=== PATIENT | male | born 1980 | race Caucasian/White ===

== ENCOUNTER 2017-09-20 22:57 | Emergency (ER) | payer OTHER ==
[2017-09-20 23:07] VITALS: BP 118/74
--- NOTE | 2017-09-20 23:27 | ERNOTE ---
Medical Problem HPI - General Chief Complaint: General Assessment Time Seen by Provider: 09/20/17 23:13 Source: patient, police Exam Limitations: no limitations - Immun/Allergies/Home Medications Immunizations: IMMUNIZATION HX Immunizations Up to Date Yes History of Influenza Vaccine Yes Hx Pneumococcal Vaccination No Allergies/Adverse Reactions: Allergies No Known Allergies Allergy (Verified 04/01/16 11:12) Home Medications: HOME MEDICATIONS NK [No Home Medication] 07/17/14 [Last Taken Unknown] - History of Present History Narrative: Pt was brought in by LE due to being tazed and acting irrational in their custody. Pt is acting a little strange here but reports that he has no pain or illness and that he feels "great". Timing: gone now Review of Systems - Review of Systems Constitutional: Absent: recent illness EYE: Absent: double vision ENT: Absent: nose congestion Respiratory: Absent: shortness of breath Cardiology: Absent: chest pain Gastrointestinal/Abdominal: Absent: nausea, vomiting Genitourinary: Present: no symptoms reported Musculoskeletal: Absent: back pain, muscle pain Skin: Present: no symptoms reported Neurological: Present: anxiety - but is relieved by smoking "you know". . Absent: headache Endocrine: Present: no symptoms reported Hematologic/Lymphatic: Present: no symptoms reported Psych: Present: anxiety - Patient's Past Medical History Patient History - Medical: No pertinent hx Patient History - Cardiac/Respiratory: No pertinent hx Patient History - Cancer: No Hx of Cancer Patient History - Surgical Procedures: No surgical history Patient History - Other: None - Family History Mother Family History - Medical: Seizures Father Family History - Medical: No pertinent hx - Social History Living Situations: parents Psych History: Hx of Anxiety, Hx of Depression Smoking Status: Current every day smoker Have you smoked in the past 12 months: Yes Do you dip or chew tobacco: No Alcohol Use: occasionally Drug Use: marijuana - Immunizations Immunizations Up to Date: Yes Hx Pneumococcal Vaccination: No History of Influenza Vaccine: Yes Physical Exam - Physical Exam General Appearance: Present: wd/wn, alert, no apparent distress Head Exam: Present: normal inspection, no evidence of injury Eye Exam: Normal inspection: bilateral, PERRL: bilateral - small but reactive, EOMI: bilateral, Sclera injection: bilateral - mild Ears, Nose, Throat: Present: normal pharynx, dry mucous membranes. Absent: tonsillar swelling Neck: Present: normal inspection, nontender, supple Respiratory: Present: no respiratory distress, normal breath sounds, lungs clear Cardiovascular/Chest: Present: regular rate, rhythm, no murmur, normal peripheral pulses Gastrointestinal/Abdominal: Present: normal bowel sounds, nontender, nondistended, soft Back Exam: Present: normal inspection, normal range of motion, no CVA tenderness , no vertebral tenderness Extremity Exam: Present: normal inspection, normal range of motion, no edema Neurological Exam: Present: alert, oriented, other - focused on smoking but will not come out and say what he has been smoking except that he smokes it instead of cigarettes Skin Exam: Present: normal color, warm/dry, other - two small puncture wounds from tazer barbs on his mid back, no inflamation or bleeding Lymphatic Exam: Present: no adenopathy ED Progress - Vital Signs Vital Signs: Vital Signs 09/20/17 22:59 Temperature 36.7 C Pulse Rate 119 H Respiratory 20 Rate Blood Pressure 118/74 O2 Sat by Pulse 98 Oximetry - Progress/Reassessment Chief Complaint: General Assessment Departure Clinical Impression: Puncture wound of back wall of thorax without foreign body without penetration into thoracic cavity Qualifiers: Encounter type: initial encounter Laterality: unspecified laterality Qualified Code(s): S21.239A - Puncture wound without foreign body of unspecified back wall of thorax without penetration into thoracic cavity, initial encounter - Departure Disposition: Long-Term Condition: Good Instructions: Puncture Wound, [id number] Additional Instructions: Wash wounds and apply triple antibiotic ointment to the wounds twice a day for 3 -5 days.
== END 2017-09-20 23:27 ==
LOC: ER 22:57
DX: S21.239A Puncture wound without foreign body of unspecified back wall of thorax without penetration into thoracic cavity, initial encounter (principal); Y35.891A Legal intervention involving other specified means, law enforcement official injured, initial encounter; Y93.9 Activity, unspecified; Y92.149 Unspecified place in prison as the place of occurrence of the external cause; Y99.9 Unspecified external cause status; F17.200 Nicotine dependence, unspecified, uncomplicated

== ENCOUNTER 2017-09-22 19:54 | Emergency (ER) | payer SELFPAY ==
--- NOTE | 2017-09-22 21:01 | ERNOTE ---
Medical Problem HPI - General Chief Complaint: General Assessment Time Seen by Provider: 09/22/17 20:25 Source: patient Exam Limitations: no limitations - Immun/Allergies/Home Medications Immunizations: IMMUNIZATION HX Immunizations Up to Date Yes History of Influenza Vaccine Yes Hx Pneumococcal Vaccination No Allergies/Adverse Reactions: Allergies No Known Allergies Allergy (Verified 04/01/16 11:12) Home Medications: HOME MEDICATIONS NK [No Home Medication] 07/17/14 [Last Taken Unknown] - History of Present History Narrative: Pt was arrested 2 days ago and was reportedly aggressive with police. He was tazed by police and was subsequently brought to the ED at that time. During that visit patient stated that he did not have any pain and thus no x-rays were taken at that time. He has become more sore and now desires evaluation for his injuries. He states he has right shoulder pain, left hip pain, neck and head pain Timing: constant Severity: moderate Modifying Factors - (Improves): Present: immobilization Modifying Factors - (Worsens): Present: movement Review of Systems - Review of Systems Constitutional: Present: fatigue, malaise EYE: Present: no symptoms reported ENT: Present: no symptoms reported Respiratory: Absent: cough Cardiology: Present: chest pain - general soreness Gastrointestinal/Abdominal: Present: nausea, vomiting Genitourinary: Absent: frequency, pain Musculoskeletal: Present: See HPI, back pain, muscle pain, neck pain Skin: Present: other - bruise on left hip and abrasion right shoulder Neurological: Present: headache. Absent: weakness, numbness Endocrine: Absent: excessive sweating Hematologic/Lymphatic: Present: no symptoms reported Psych: Present: emotional problems - Patient's Past Medical History Patient History - Medical: No pertinent hx Patient History - Cardiac/Respiratory: No pertinent hx Patient History - Cancer: No Hx of Cancer Patient History - Surgical Procedures: No surgical history Patient History - Other: None - Family History Mother Family History - Medical: Seizures Father Family History - Medical: No pertinent hx - Social History Living Situations: parents Psych History: Hx of Anxiety, Hx of Depression Smoking Status: Current every day smoker Have you smoked in the past 12 months: Yes Do you dip or chew tobacco: No Alcohol Use: heavy Drug Use: marijuana - Immunizations Immunizations Up to Date: Yes Hx Pneumococcal Vaccination: No History of Influenza Vaccine: Yes Physical Exam - Physical Exam General Appearance: Present: wd/wn, alert, no apparent distress Head Exam: Present: normal inspection, no evidence of injury Eye Exam: Normal inspection: bilateral, PERRL: bilateral, EOMI: bilateral, Other : bilateral - fundus normal Ears, Nose, Throat: Present: nasal congestion - pale mucosa, normal pharynx Neck: Present: full range of motion, tender posterior midline - C7-T1 Respiratory: Present: no respiratory distress, no accessory muscle use Back Exam: Present: vertebral tenderness - upper thoracic Extremity Exam: Present: normal range of motion. Absent: joint redness, joint swelling Neurological Exam: Present: alert, oriented, normal mood/affect, no motor/ sensory deficits Skin Exam: Present: other - bruising over left illium and abrasion over right shoulder ED Progress - Vital Signs Vital Signs: Vital Signs 09/22/17 20:03 Temperature 37.6 C H Pulse Rate 82 Respiratory 16 Rate Blood Pressure 149/77 O2 Sat by Pulse 99 Oximetry - X-Ray X-Ray #1 X-Ray: thoracic Interpretation: Reviewed by me X-ray Comments: IMPRESSION: No acute fracture or listhesis. The upper thoracic spine is poorly visualized even on the swimmer's view due to overlying structures. Electronically signed by Marisol Dorsey D.O.. X-Ray #2 X-Ray: c-spine Interpretation: Reviewed by me X-ray Comments: IMPRESSION: Straightening of the normal cervical lordosis which may be positional or related to muscle spasm. No acute fracture or listhesis. Electronically signed by Marisol Dorsye D.O.. X-Ray #3 X-Ray: hip - left Interpretation: Reviewed by me X-ray Comments: FINDINGS: There is no evidence of acute fracture or malalignment. The joint spaces are normal. The visualized soft tissues are normal. IMPRESSION: No acute fracture. Electronically signed by Marisol Dorsey D.O.. X-Ray #4 X-Ray: shoulder Interpretation: Reviewed by me X-ray Comments: FINDINGS: There is no evidence of acute fracture or malalignment. The joint spaces are normal. The acromiohumeral distance is not narrowed. The visualized soft tissues are normal. IMPRESSION: Normal exam. Electronically signed by Marisol Dorsey D.O.. - CT/Ultrasound CT/Ultrasound Narrative: CT head without contrast: Impression: No acute intracranial process. Electronically signed by Marisol Dorsey D.O.. - Progress/Reassessment Chief Complaint: General Assessment Departure Clinical Impression: Right shoulder strain Qualifiers: Encounter type: initial encounter Qualified Code(s): S46.911A - Strain of unspecified muscle, fascia and tendon at shoulder and upper arm level, right arm , initial encounter Contusion of hip, left Qualifiers: Encounter type: initial encounter Qualified Code(s): S70.02XA - Contusion of left hip, initial encounter Cervical myofascial strain Qualifiers: Encounter type: initial encounter Qualified Code(s): S16.1XXA - Strain of muscle, fascia and tendon at neck level, initial encounter - Departure Disposition: Home self-care Condition: Good Instructions: Cryotherapy, [id number], Muscle Strain, [id number], Thoracic Strain, [id number], Cervical Sprain, [id number]
[2017-09-22 22:51] VITALS: BP 138/77
== END 2017-09-22 23:00 | disposition home or self-care (01) ==
LOC: ER 19:54
DX: S46.911A Strain of unspecified muscle, fascia and tendon at shoulder and upper arm level, right arm, initial encounter (principal); S70.02XA Contusion of left hip, initial encounter; S16.1XXA Strain of muscle, fascia and tendon at neck level, initial encounter; Y35.893D Legal intervention involving other specified means, suspect injured, subsequent encounter

== ENCOUNTER 2017-10-09 15:37 | Emergency (ER) | payer SELFPAY ==
[2017-10-09 16:11] VITALS: BP 125/87
--- NOTE | 2017-10-09 16:16 | ERNOTE ---
Date of Service: 10/09/17 Time Seen by Provider: 10/09/17 15:46 Stated Complaint: SINUS.COUGH Source: patient Exam Limitations: no limitations Immunizations: IMMUNIZATION HX Immunizations Up to Date Yes History of Influenza Vaccine Yes Hx Pneumococcal Vaccination Yes Allergies/Adverse Reactions: Allergies No Known Allergies Allergy (Verified 10/09/17 15:51) Home Medications: HOME MEDICATIONS Azithromycin [Zithromax] 500 mg PO NOW #6 tab 10/09/17 [Last Taken Unknown] - History of Present Ilness Narrative: Patient presents to the ED for left maxillary sinus pain. he relates significnt pressure here. He has felt feverish and been coughing for many day, the left maxillary sinus has been hurting for 3-4 days. Ear pain also. no SOB. Smoker. No CP. No vomiting or abdominal pain. Timing: constant, getting worse Severity: moderate Modifying Factors - Improves: Reports: nothing Modifying Factors - Worsens: Reports: nothing Associated Symptoms: Reports: cough, nasal congestion, earache. Denies: chest pain/soreness, shortness of breath, headache, sore throat Prior Treatment: Denies: recently seen Review of Systems - Review of Systems Constitutional: Absent: fever EYE: Absent: double vision ENT: Present: See HPI Respiratory: Present: cough Cardiology: Absent: chest pain Gastrointestinal/Abdominal: Absent: abdominal pain Neurological: Absent: weakness - Patient's Past Medical History Patient History - Medical: No pertinent hx Patient History - Cardiac/Respiratory: No pertinent hx Patient History - Cancer: No Hx of Cancer Patient History - Surgical Procedures: No surgical history Patient History - Other: None - Family History Mother Family History - Medical: Seizures Father Family History - Medical: No pertinent hx - Social History Living Situations: home Psych History: Hx of Anxiety, Hx of Depression Smoking Status: Current every day smoker Alcohol Use: occasionally Drug Use: marijuana - Immunizations Immunizations Up to Date: Yes Hx Pneumococcal Vaccination: Yes History of Influenza Vaccine: Yes Physical Exam - Physical Exam General Appearance: Present: alert, no apparent distress, other - no distress, non-toxic. Head Exam: Present: normal inspection, no evidence of injury Eye Exam: Normal inspection: bilateral, PERRL: bilateral Ears, Nose, Throat: Present: nasal congestion, sinus pain/drainage, normal pharynx, other - left OM. Left maxillary sinusitis.. 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 Absent: pharyngeal swelling, tonsillar exudate Neck: Present: normal inspection, nontender, supple, other - no meningeal signs Respiratory: Present: no respiratory distress, normal breath sounds, no accessory muscle use, lungs clear Cardiovascular/Chest: Present: regular rate, rhythm, normal peripheral pulses Gastrointestinal/Abdominal: Present: normal bowel sounds, nontender, nondistended, soft Back Exam: Absent: CVA tenderness (R), CVA tenderness (L) Extremity Exam: Present: normal inspection, normal range of motion Neurological Exam: Present: alert, normal mood/affect, no motor/sensory deficits Skin Exam: Present: normal color, warm/dry ED Progress - Vital Signs Patient's Vital Signs:: I have reviewed the patient's vital signs. Vital Signs: Vital Signs 10/09/17 10/09/17 15:47 16:01 Temperature 37.4 C Pulse Rate 91 91 Respiratory 18 Rate Blood Pressure 149/89 O2 Sat by Pulse 99 Oximetry - Progress/Reassessment Chief Complaint: Upper Respiratory Symptoms Progress Note-Subjective: 10/09/17 16:12 I will treat the OM and sinusitis with ABx. No other acute life threats noted. Non-toxic, well hydrated. Departure Clinical Impression: Sinusitis, Otitis media - Departure Disposition: Home self-care Condition: Stable Instructions: Sinusitis, Adult, [id number] Additional Instructions: Rest. Fluids. Follow-up in 5 days for a re-check with your doctor. REturn for trouble breathing or if your condition worsens or changes in any way. Prescriptions: Azithromycin [Zithromax] 500 mg PO NOW #6 tab
== END 2017-10-09 16:18 | disposition home or self-care (01) ==
LOC: ER 15:37
DX: J01.90 Acute sinusitis, unspecified (principal); H66.92 Otitis media, unspecified, left ear